=== PATIENT | female | born 1985 | race Hispanic/Latino ===

== ENCOUNTER 2022-02-10 17:44 | Emergency (ER) | payer SELFPAY ==
--- OUTSIDE RECORDS SUMMARY | 2022-02-10 17:46 | XMS REPORT | Continuity of Care Document ---
:1985 Author Organization [facility] t Address [address] [place] [address] Care Team Providers Name Role Phone Unavailable Unavailable Unavailable Payers Payer Name Policy Type Policy Number Effective Date Expiration Date S ource Problems This patient has no known problems. Allergies, Adverse Reactions, Alerts Allergy Allergy Status Severity Reaction(s) Onset Inactive Treating Comm ents Source Name Type Date Date Clinician No Known DA Active U 2017- [facility] All[facility]ie 03-11 [facility] Medications This patient has no known medications. Procedures This patient has no known procedures. Results This patient has no known results.
[2022-02-10] MEDS ORDERED: DIPHENHYDRAMINE 25 MG TAB/CAP ONE (18:34)
[2022-02-10] MEDS ORDERED: predniSONE 20 MG TAB ONE (18:35)
[2022-02-10] MEDS ORDERED: FAMOTIDINE 20 MG TAB ONE (18:35)
--- NOTE | 2022-02-10 20:46 | EDPHYS ---
Physician Documentation [facility] Name: Zenia Hilario Age: 36 yrs Sex: Female : 1985 Arrival Date: 02/10/2022 Time: 17:44 Bed IW2 Private MD: ED Physician Lake Bartholomew HPI: 02/10 17:59 This 36 yrs old Female presents to ER via Ambulatory with complaints of Rash. ms3 17:59 The patient's rash thought to be caused by an unknown cause. The rash is located on the ms3 right arm, left arm, right leg and left leg. The rash can be described as urticarial. Onset: The symptoms/episode began/occurred 2 hour(s) ago. Associated signs and symptoms: Pertinent positives: itching. Severity of symptoms: At their worst the symptoms were moderate in the emergency department the symptoms are unchanged. Treatment given at home: none. 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 - Social history:: Smoking status: Patient denies any tobacco usage or history of. Patient/guardian denies using alcohol. ROS: 18:00 Constitutional: Negative for fever, and chills. ENT: Negative for injury, pain, and ms3 discharge, Neck: Negative for injury, pain, and swelling, Cardiovascular: Negative for chest pain, and palpitations. Respiratory: Negative for shortness of breath, cough, wheezing, and pleuritic chest pain, Abdomen/GI: Negative for abdominal pain, nausea, vomiting, diarrhea, and constipation, MS/Extremity: Negative for injury and deformity. 18:00 Skin: Positive for urticaria. 18:00 All other systems are negative. Exam: 18:00 Constitutional: This is a well developed, well nourished patient who is awake, alert, ms3 and in no acute distress. Head/Face: Normocephalic, atraumatic. Neck: Trachea midline, no cervical lymphadenopathy. Supple, full range of motion without nuchal rigidity, or vertebral point tenderness. No Meningismus. Chest/axilla: Normal chest wall appearance and motion. Nontender with no deformity. Cardiovascular: Regular rate and rhythm with a normal S1 and S2. No gallops, murmurs, or rubs. Normal PMI, no JVD. No pulse deficits. Respiratory: Lungs have equal breath sounds bilaterally, clear to auscultation and percussion. No rales, rhonchi or wheezes noted. No increased work of breathing, no retractions or nasal flaring. Abdomen/GI: Soft, non-tender, with normal bowel sounds. No distension or tympany. No guarding or rebound. No evidence of tenderness throughout. 18:00 Skin: urticaria, on the right arm, left arm, right leg and left leg. Vital Signs: 17:54 Pulse 96; Resp 18; Temp 98.6(TE); Pulse Ox 100% on R/A; Weight 68.04 kg; Height 5 ft. 0 ld1 in. (152.40 cm); Pain 0/10; 17:56 BP 143 / 98; ld1 20:48 BP 139 / 84; Pulse 91; Resp 18; Pulse Ox 100% on R/A; Pain 0/10; ld1 17:54 Body Mass Index 29.29 (68.04 kg, 152.40 cm) ld1 MDM: 17:55 Patient medically screened. ms3 20:45 Differential diagnosis: allergic reaction, contact dermatitis. Data reviewed: vital rn signs, nurses notes, and as a result, I will discharge patient. Counseling: I had a detailed discussion with the patient and/or guardian regarding: the historical points, exam findings, and any diagnostic results supporting the discharge/admit diagnosis, the need for outpatient follow up, to return to the emergency department if symptoms worsen or persist or if there are any questions or concerns that arise at home. Response to treatment: the patient's symptoms have markedly improved after treatment, and as a result, I will discharge patient. Special discussion: I discussed with the patient/guardian in detail that at this point there is no indication for admission to the hospital. It is understood, however, that if the symptoms persist or worsen the patient needs to return immediately for re-evaluation. Administered Medications: 18:34 Drug: Benadryl (diphenhydrAMINE) 50 mg Route: PO; jd3 18:34 Drug: predniSONE 40 mg Route: PO; jd3 18:34 Drug: Pepcid (famotidine) 20 mg Route: PO; jd3 Disposition Summary: 02/10/22 20:45 Discharge Ordered Location: Home rn Condition: Stable rn Problem: new rn Symptoms: have improved rn Diagnosis - Urticaria, unspecified rn - Pruritus, unspecified rn Followup: ms3 - With: - When: 2 - 3 days - Reason: Recheck today's complaints Discharge Instructions: - Discharge Summary Sheet ms3 - Hives, [id number] ms3 Forms: - Medication Reconciliation Form rn - Thank You Letter rn - 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
--- NOTE | 2022-02-10 20:46 | ER ---
Nurse's Notes [facility] Name: Zenia Hilario Age: 36 yrs Sex: Female : 1985 Arrival Date: 02/10/2022 Time: 17:44 Bed IW2 Private MD: Diagnosis: Urticaria, unspecified;Pruritus, unspecified Presentation: 02/10 17:54 Chief complaint: Patient states: Rash all over body since 1600 - urticaria X 2 hours. ld1 Coronavirus screen: At this time, the client does not indicate any symptoms associated with coronavirus-19. Ebola Screen: No symptoms or risks identified at this time. Initial Sepsis Screen: Does the patient meet any 2 criteria? No. Patient's initial sepsis screen is negative. Does the patient have a suspected source of infection? No. Patient's initial sepsis screen is negative. Risk Assessment: Do you want to hurt yourself or someone else? Patient reports no desire to harm self or others. Onset of symptoms was February 10, 2022. 17:54 Method Of Arrival: Ambulatory ld1 17:54 Acuity: RETA 3 ld1 Triage Assessment: 17:55 General: Appears in no apparent distress. comfortable, Behavior is calm, cooperative, ld1 appropriate for age. Pain: Denies pain. EENT: No signs and/or symptoms were reported regarding the EENT system. Neuro: Level of Consciousness is awake, alert, obeys commands, Oriented to person, place, time, situation. Cardiovascular: Capillary refill < 3 seconds Patient's skin is warm and dry. Respiratory: Airway is patent Respiratory effort is even, unlabored. GI: Abdomen is round non-distended. : No signs and/or symptoms were reported regarding the genitourinary system. Derm: Rash noted that is itchy, red. Musculoskeletal: No signs and/or symptoms reported regarding the musculoskeletal system. 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 - Social history:: Smoking status: Patient denies any tobacco usage or history of. Patient/guardian denies using alcohol. Screenin:48 Abuse screen: Denies threats or abuse. Denies injuries from another. Nutritional ld1 screening: No deficits noted. Tuberculosis screening: No symptoms or risk factors identified. Fall Risk No fall in past 12 months (0 pts). Assessment: 20:48 Reassessment: See triage assessment. ld1 Vital Signs: 17:54 Pulse 96; Resp 18; Temp 98.6(TE); Pulse Ox 100% on R/A; Weight 68.04 kg; Height 5 ft. 0 ld1 in. (152.40 cm); Pain 0/10; 17:56 BP 143 / 98; ld1 20:48 BP 139 / 84; Pulse 91; Resp 18; Pulse Ox 100% on R/A; Pain 0/10; ld1 17:54 Body Mass Index 29.29 (68.04 kg, 152.40 cm) ld1 ED Course: 17:44 Patient arrived in ED. rg4 17:47 Soham Reyes DO is Attending Physician. ms3 17:55 Triage completed. ld1 17:55 Arm band placed on right wrist. ld1 19:04 Attending Physician role handed off by Soham Reyes DO rn 19:04 Lake Bartholomew MD is Attending Physician. rn 20:45 Bobby Felix DO is Referral Physician. rn 20:47 Celia Hall, VERNON is Primary Nurse. ld1 20:48 Patient has correct armband on for positive identification. Call light in reach. Pulse ld1 ox on. NIBP on. Door closed. 20:48 No provider procedures requiring assistance completed. Patient did not have IV access ld1 during this emergency room visit. Administered Medications: 18:34 Drug: Benadryl (diphenhydrAMINE) 50 mg Route: PO; jd3 18:34 Drug: predniSONE 40 mg Route: PO; jd3 18:34 Drug: Pepcid (famotidine) 20 mg Route: PO; jd3 Medication: 20:48 VIS not applicable for this client. ld1 Outcome: 20:45 Discharge ordered by . rn 20:48 Discharged to home ambulatory. ld1 20:48 Condition: good 20:48 Discharge instructions given to patient, Instructed on discharge instructions, follow up and referral plans. medication usage, Demonstrated understanding of instructions, follow-up care, medications, Prescriptions given X 1. 20:49 Patient left the ED. ld1 Signatures: Lake Bartholomew MD MD rn Pietro, Brenda rg4 Broide Chandra RN RN jd3 Soham Reyes DO DO ms3 Celia Hall RN RN ld1
[2022-02-10 20:52] VITALS: TEMP 98.6; O2SAT 100
[2022-02-10 20:54] VITALS: BP 139/84
== END 2022-02-10 20:49 | disposition home or self-care (01) ==
LOC: ER 17:44
DX: L50.9 Urticaria, unspecified (principal); L29.9 Pruritus, unspecified
CPT/HCPCS: 99283; J7512